=== PATIENT | male | born 1955 | race Caucasian/White ===

== ENCOUNTER 2018-11-11 10:10 | Emergency (ER) | payer MEDICAID ==
[~2018-11-11] VITALS: Ht 180.3 cm; Wt 116.0 kg
[~2018-11-11 10:10] MED LIST: NO HOME MEDS
[2018-11-11 12:36] VITALS: BP 148/85
== END 2018-11-11 12:38 | disposition home or self-care (01) ==
LOC: ER 10:10
DX: H91.91 Unspecified hearing loss, right ear (principal); I10 Essential (primary) hypertension; E78.00 Pure hypercholesterolemia, unspecified; F17.200 Nicotine dependence, unspecified, uncomplicated
CPT/HCPCS: 70450; 99284

== ENCOUNTER 2022-03-07 18:16 | Emergency (ER) | payer MEDICAID ==
[~2022-03-07] VITALS: Ht 180.3 cm; Wt 109.1 kg
[2022-03-07 19:20] VITALS: BP 154/86
[2022-03-07] MEDS ORDERED: TETanus/Pertussis (Acell)/Diphther VAC/PF (Tdap-Adult) 0.5ml syringe IMVAC ONE (20:45)
[2022-03-07] MEDS ORDERED: LIDOcaine 1% w/EPI 1:100,000 30ml vial (MDV) IJ ONE (20:45)
--- NOTE | 2022-03-07 21:36 | NUR ---
DRESSING APPLIED TO LAC SITE FINGER SPLINT APPLIED TO LAC SITE.
== END 2022-03-07 21:38 | disposition home or self-care (01) ==
LOC: ER 18:16
DX: S61.012A Laceration without foreign body of left thumb without damage to nail, initial encounter (principal); I10 Essential (primary) hypertension; W26.0XXA Contact with knife, initial encounter; Y93.89 Activity, other specified; Y92.89 Other specified places as the place of occurrence of the external cause; Y99.8 Other external cause status
CPT/HCPCS: 12001; 90471; 90715; 99283